=== PATIENT | male | born 1980 | race Caucasian/White ===

== ENCOUNTER 2021-08-14 14:40 | Emergency (ER) | payer BC ==
[~2021-08-14] VITALS: Ht 175.2 cm; Wt 70.3 kg
[~2021-08-14 14:40] MED LIST: COLACE100 MG PO; COMPAZINE10 MG PO; FLAGYL500 MG PO; IBU800 MG PO; PERCOCET 325 MG1 TA2 PO; RECTICARE15 GM TP
[2021-08-14] MEDS ORDERED: CEPHALEXIN500 M1 PO (15:12)
[2021-08-14] MEDS ORDERED: SEPTDS PO (15:12)
== END 2021-08-14 15:40 | disposition home or self-care (01) ==
LOC: ED 14:40
DX: L01.03 Bullous impetigo (principal)

== ENCOUNTER 2024-08-04 12:23 | Emergency (ER) | payer BC ==
[~2024-08-04] VITALS: Ht 170.1 cm; Wt 68.0 kg
[~2024-08-04 12:23] MED LIST changes: +CEPHALEXIN500 M1 PO; +SEPTDS PO
[2024-08-04] MEDS ORDERED: VIBRAMYCIN100 MG PO (12:59)
[2024-08-04] MEDS ORDERED: ACETAMINOPHEN 325 MG TAB PO ONE (13:05)
[2024-08-04] MEDS ORDERED: Doxycycline Hyclate 100 MG CAPSULE PO ONE (13:05)
[2024-08-04] MEDS ORDERED: TRIAMCINOLONE ACETONIDE 15 GM TUBE T ONE (13:05)
== END 2024-08-04 13:34 | disposition home or self-care (01) ==
LOC: ED 12:23
DX: S80.261A Insect bite (nonvenomous), right knee, initial encounter (principal); L03.115 Cellulitis of right lower limb; W57.XXXA Bitten or stung by nonvenomous insect and other nonvenomous arthropods, initial encounter; Y93.89 Activity, other specified; Y92.89 Other specified places as the place of occurrence of the external cause; Y99.8 Other external cause status